=== PATIENT | male | born 1955 | race Caucasian/White ===

== ENCOUNTER 2024-07-05 09:24 | Outpatient (REF) | payer MEDICARE, SELFPAY ==
--- NOTE | ~2024-07-05 | XR_ITS ---
EXAMINATION: XR LUMBOSACRAL SPINE CLINICAL INFORMATION: Intervertebral disc degeneration. COMPARISON: None TECHNIQUE: AP and lateral views of the lumbar spine were obtained. Lateral views were obtained in flexion, extension, and neutral positions. FINDINGS: There is bony demineralization. There is a mild lumbar rotatory dextroscoliosis. At L3-4, there is moderately severe leftward disc space narrowing and a 3 mm retrolisthesis. The remaining disc spaces are relatively well-maintained. No acute fracture or spondylolisthesis is seen. There is no significant instability with flexion or extension. There is multi-level lumbar endplate arthropathy. There is facet arthropathy at L5-S1. There are aortoiliac atherosclerotic calcifications. XR/XR lumbar spine 4V min IMPRESSION: 1. There is moderately severe degenerative disease at L3-4. 2. No acute fracture or spondylolisthesis is seen. 3. There is no significant instability with flexion or extension. 4. There is facet arthropathy at L5-S1. Electronically signed by: Max Renteria MD 08/03/2024 08:14 PM EDT
== END 2024-07-05 09:25 | disposition home or self-care (01) ==
LOC: HO.HOSX 09:24
PROVIDERS: PCP Family Medicine; Visit Provider Physician Assistant
DX: M51.36 Other intervertebral disc degeneration, lumbar region (principal)
CPT/HCPCS: 72110; 99202

== ENCOUNTER 2024-07-05 09:24 | Outpatient (AMB) | payer MEDICARE, SELFPAY ==
--- NOTE | 2024-07-05 09:26 | HO.SPINEOV ---
Intake Visit Reasons: Back pain Intake Note: Mr. Henry is here today c/o numbness,tingling and weakness on both legs and Low back pain. Heel Padder Required: No Allergies No Known Allergies Allergy (Verified 07/05/24 09:34) Assessment & Plan Assessment & Plan (1) Lumbar degenerative disc disease: Code(s): M51.36 - Other intervertebral disc degeneration, lumbar region Category: Medical Plan This is a very nice 69-year-old gentleman who is self-referred to the office today. He found Dr. De Oliveira name online after searching minimally invasive spine surgery. He had a previous lumbar decompression done at [facility] in 2019. At that time he had pain radiating down into his anterior thigh. This gentleman describes that the procedure was basically cleaning out some bone and ligament. It sounds like he had a foraminotomy possibly they L3-4 level. He did excellent from that until about 3-4 months ago he started experiencing midline back pain radiating down into both of his legs. It is aggravated with standing walking and better when he sits. He does have pain with rising up from a chair. The pain down the legs goes into the buttock and goes down into the outer calves. It can alternate which side is worse than the other. Going up stairs is difficult. He started with anti-inflammatories and muscle relaxers but these did not help at all. He has done physical therapy. Previously done cortisone injections but none recently. He has also been trying CBD cream. That seems to help but when he does not take it the pain comes right back. He is here today see us for evaluation of lumbar MRI done at [facility] showing multilevel degenerative disc disease, primarily L3-4 and L4-5. He did get an initial opinion from a in [place], and it sounds like they are anticipating doing either a 1 level or 2 level fusion. PMH: History of a right total knee replacement, lower back surgery in 2019. He has some mild hypercholesterolemia. Other than that he is not reporting any major medical issues. Social hx: He has not smoke, drink or use any recreational drugs Medications: He takes a small amount of rosuvastatin, and cinnamon supplement. Allergies: None Physical exam: Strength and reflexes are normal with the exception of his right knee which is absent. Imaging review: Lumbar MRI done at [facility] shows that he has multilevel degenerative disc disease, however at L3-4 there is collapse on the left side of the disc space with narrowing in the left L3 foramen. It should be clear however this is a noncontrast image which does limit evaluation to some degree. Secondly, at L4-5 there is severe disc degeneration with neuroforaminal narrowing on the right at the L4 foramen and bilateral lateral recess narrowing, worse on the right. He has x-rays done in the supine position which confirmed the foraminal narrowing seen on the MRI. Impression: 69-year-old male here for evaluation of back pain midline radiating down into both buttocks, posterior thighs into the calves with standing walking. He has a previous foraminotomy done at [facility] in 2019 for which he had excellent results. I believe this was the L3-4 level that was operated on based on his symptoms but do not have an operative report to confirm. He did great from that but 3 or 4 months ago his current symptoms started and they have not responded to conservative treatment. He saw someone at the [facility] in [place] who sounds like is going to offer him either 1 or 2 level fusion. I reviewed his imaging and we went over together. He does have foraminal narrowing on the right at L4-5 and the left at L3 4. There is also bilateral lateral recess narrowing at L4-5. There is a slight retrolisthesis at L3-4 and disc collapse at both levels. This is something typically Dr. De Oliveira would offer him fusion surgery to address as well. I am going to send him for standing flexion-extension x-ray just to evaluate for any occult signs of instability. I would like to review the imaging with Dr. De Oliveira and get back to the patient with a final plan. We did briefly discuss the options of oblique lumbar interbody fusion and trans [place] interbody fusion, risks, benefits, recovery etc.. Thank you for allowing us to care for your patient. The total time spent with this visit with this patient was 45 minutes reviewing history, physical exam, lumbar imaging review, and implementation of treatment plan or further diagnostic testing Syd De Oliveira MD,PhD [facility] Orders: Orders XR lumbar spine 4V min Today M51.36 - Other intervertebral disc degeneration, lumbar region Coding Level of Care Code New Pt Level 4 (70742) Diagnoses Lumbar degenerative disc disease M51.36
== END 2024-07-05 10:57 | disposition home or self-care (01) ==
PROVIDERS: PCP Family Medicine; Visit Provider Physician Assistant
DX: M51.36 Other intervertebral disc degeneration, lumbar region (principal)
CPT/HCPCS: 99204